=== PATIENT | female | born 1945 | race Caucasian/White ===

== ENCOUNTER 2018-03-05 11:40 | Inpatient (IN) | payer OTHER, MEDICAID ==
[2018-03-05 12:30] LABS: ABNORMAL IP MESSAGE 1; HEMATOCRIT 28.6 % (37.0-47.0); HEMOGLOBIN 9.5 g/dl (12.0-16.0); MEAN CORPUSCULAR HEMOGLOBIN 29.2 pg (29.0-33.0); MEAN CORPUSCULAR HGB CONC 33.2 g/dl (32.0-37.0); PLATELET COUNT 92 10^3/UL (140-415); RED BLOOD COUNT 3.25 10^6/ul (4.20-5.40); RED CELL DISTRIBUTION WIDTH 13.2 % (11.5-14.5)
[2018-03-05 12:30] LABS: WHITE BLOOD COUNT 2.5 10^3/ul (4.8-10.8)
[2018-03-05 12:31] LABS: ADD MAN DIFF? YES; POSITIVE DIFF @See below
[2018-03-05 12:53] LABS: BAND NEUTROPHILS #M 0.1 10^3/ul (0.0-0.6); BAND NEUTROPHILS % (M) 7 % (0-4); GIANT THROMBO% (M) 3 % (0-0); LYMPHOCYTES #M 0.6 10^3/ul (0.8-2.9); LYMPHOCYTES % (M) 27 % (15-51); MONOCYTE #M 0.1 10^3/ul (0.3-0.9); MONOCYTES % (M) 7 % (0-11); PLATELET ESTIMATE DECREASED; SEG NEUT #M 1.5 10^3/ul (1.6-7.5); SEGMENTED NEUTROPHILS (M) % 59 % (39-77); SMUDGE%M 11 % (0-0)
[2018-03-05 12:55] LABS: ANION GAP 18 (8-16); BLOOD UREA NITROGEN 35 mg/dl (7-20); CALCIUM 8.2 mg/dl (8.4-10.2); CARBON DIOXIDE 20 mmol/L (21-31); CHLORIDE 100 mmol/L (97-110); GLUCOSE 226 mg/dl (70-220); POTASSIUM 5.1 mmol/L (3.5-5.1); SODIUM 133 mmol/L (135-144)
[2018-03-05] MEDS: ASPIRIN 81 MG TAB PO (12:56)
[2018-03-05 13:08] LABS: TROPONIN-I < 0.012 ng/ml (0.000-0.120)
[2018-03-05 13:35] LABS: B-TYPE NATRIURETIC PEPTIDE 1800 PG/ML (0-450)
[2018-03-05] MEDS ORDERED: ONDANSETRON 4 MG INJ IV (14:30)
[2018-03-05] MEDS ORDERED: ACETAMINOPHEN 325 MG TAB PO ×2 (14:30→15:30)
[2018-03-05] MEDS ORDERED: NACL 0.9% 3 ML SYG IV (15:30)
[2018-03-05] MEDS ORDERED: morphine 2 MG INJ IV (15:30)
[2018-03-05] MEDS ORDERED: ZOLPIDEM 5 MG TAB PO (15:30)
[2018-03-05] MEDS ORDERED: DEXTROSE 50% 50 ML SYRINGE IV ×2 (16:30)
[2018-03-05] MEDS ORDERED: GLUCOSE GEL 15 GRAM TUBE BUCCAL (16:30)
[2018-03-05] MEDS ORDERED: GLUCOSE GEL 15 GRAM TUBE PO ×2 (16:30)
[2018-03-05] MEDS ORDERED: GLUCAGON 1 MG INJ IM (16:30)
[2018-03-05] MEDS: FUROSEMIDE 40 MG INJ IV (17:46)
[2018-03-05] MEDS: INSULIN ASPART [NOVOLOG] 3 ML PEN SC ×2 (17:49→21:00)
[2018-03-05 19:39] LABS: HAAIG REFLEX REFLEX FILED
[2018-03-05 19:42] LABS: RETICULOCYTE COUNT # 0.071 X10^6 (0.020-0.110); RETICULOCYTE COUNT % 2.1 % (0.5-1.5)
[2018-03-05 19:42] LABS: RETICULOCYTE RBC 3.45
[2018-03-05 19:58] LABS: LACTATE DEHYDROGENASE 489 IU/L (313-618)
[2018-03-05 19:58] LABS: CREATINE KINASE 75 IU/L (23-200)
[2018-03-05 20:12] LABS: CK INDEX 0.9; CK-MB 0.67 ng/ml (0.0-2.4)
[2018-03-05 20:13] LABS: TROPONIN-I < 0.012 ng/ml (0.000-0.120)
[2018-03-05 20:32] LABS: HEPATITIS B SURFACE ANTIGEN NEGATIVE (NEGATIVE)
[2018-03-05 20:50] LABS: HEPATITIS B CORE ANTIBODY NEGATIVE (NEGATIVE); HEPATITIS C VIRAL ANTIBODY NEGATIVE (NEGATIVE)
[2018-03-05 21:00] LABS: HIV 1&2 ANTIBODY NEGATIVE (NEGATIVE)
[2018-03-05] MEDS ORDERED: PREGABALIN 75 MG CAP PO (21:00)
[2018-03-05] MEDS: PRAMIPEXOLE 0.125 MG TAB PO (21:04)
[2018-03-05] MEDS: FAMOTIDINE 20 MG TAB PO (21:04)
[2018-03-05] MEDS: ATORVASTATIN 20 MG TAB PO (21:04)
[2018-03-05] MEDS: INSULIN GLARGINE [LANtus] 3 ML PEN SC (21:13)
[2018-03-05] MEDS: HEPARIN 5,000 UNIT/0.5 ML VIAL SC (21:14)
[2018-03-05 21:17] LABS: FOLATE > 20.0 ng/ml (2.8-20.0)
[2018-03-05] MEDS: PREGABALIN 50 MG CAP PO (22:04)
[2018-03-06 00:11] LABS: ADD UMIC NO; UR ASCORBIC ACID NEGATIVE (NEGATIVE); UR BILIRUBIN (Dip) NEGATIVE (NEGATIVE); UR BLOOD (Dip) NEGATIVE (NEGATIVE); UR CLARITY CLEAR (CLEAR); UR COLOR COLORLESS (YELLOW); UR GLUCOSE (Dip) NEGATIVE (NEGATIVE); UR KETONES (Dip) NEGATIVE (NEGATIVE); UR LEUKOCYTE ESTERASE (Dip) NEGATIVE Leu/ul (NEGATIVE); UR NITRITE (Dip) NEGATIVE (NEGATIVE); UR SPECIFIC GRAVITY (Dip) 1.004 (1.003-1.030); UR TOTAL PROTEIN (Dip) NEGATIVE (NEGATIVE); UR UROBILINOGEN (Dip) NEGATIVE (NEGATIVE)
[2018-03-06 00:39] LABS: CREATINE KINASE 93 IU/L (23-200)
[2018-03-06 00:49] LABS: CK INDEX 1.1; CK-MB 0.99 ng/ml (0.0-2.4)
[2018-03-06] MEDS: ACCU-CHEK XX ×2 (01:28→22:29)
[2018-03-06 02:00] LABS: TROPONIN-I < 0.012 ng/ml (0.000-0.120)
[2018-03-06 06:59] LABS: ADD MAN DIFF? NO
[2018-03-06 07:14] LABS: EOSINOPHILS % 0.4 % (0.0-7.0); HEMATOCRIT 30.5 % (37.0-47.0); HEMOGLOBIN 10.4 g/dl (12.0-16.0); LYMPHOCYTES # 0.9 10^3/ul (0.8-2.9); LYMPHOCYTES % 33.7 % (15.0-51.0); MEAN CORPUSCULAR HEMOGLOBIN 29.7 pg (29.0-33.0); MEAN CORPUSCULAR HGB CONC 34.1 g/dl (32.0-37.0); MEAN CORPUSCULAR VOLUME 87.1 fl (82.0-101.0); MEAN PLATELET VOLUME 11.4 fl (7.4-10.4); MONOCYTE # 0.4 10^3/ul (0.3-0.9); MONOCYTES % 15.5 % (0.0-11.0); NEUTROPHIL # 1.3 10^3/ul (1.6-7.5); NEUTROPHILS % 47.4 % (39.0-77.0); PLATELET COUNT 101 10^3/UL (140-415)
[2018-03-06 07:14] LABS: WHITE BLOOD COUNT 2.6 10^3/ul (4.8-10.8)
[2018-03-06 07:21] LABS: ALANINE AMINOTRANSFERASE 30 IU/L (13-69); ALBUMIN 4.4 g/dl (3.3-4.9); ALBUMIN/GLOBULIN RATIO 1.41; ALKALINE PHOSPHATASE 84 IU/L (42-121); ANION GAP 17 (8-16); ASPARTATE AMINO TRANSFERASE 27 IU/L (15-46); BILIRUBIN,INDIRECT 0.4 mg/dl (0-1.1); BILIRUBIN,TOTAL 0.4 mg/dl (0.2-1.3); BLOOD UREA NITROGEN 33 mg/dl (7-20); CALCIUM 9.5 mg/dl (8.4-10.2); CARBON DIOXIDE 29 mmol/L (21-31); CHLORIDE 98 mmol/L (97-110); CHOL/HDL RATIO 2.5 RATIO; CHOLESTEROL 97 mg/dl (100-200); CREATININE 1.05 mg/dl (0.44-1.00); GLUCOSE 104 mg/dl (70-220); HDL CHOLESTEROL 38 mg/dl (33-92); LDL CHOLESTEROL,CALCULATED 21 mg/dl; MAGNESIUM 1.7 mg/dl (1.7-2.5); PHOSPHORUS 5.4 mg/dl (2.5-4.9); POTASSIUM 4.4 mmol/L (3.5-5.1); SODIUM 140 mmol/L (135-144); TOTAL PROTEIN 7.5 g/dl (6.1-8.1); TRIGLYCERIDES 188 mg/dl (0-149)
[2018-03-06] MEDS: INSULIN ASPART [NOVOLOG] 3 ML PEN SC ×4 (08:00→20:49)
[2018-03-06] MEDS ORDERED: ENOXAPARIN 40 MG/0.4 ML SYG SC (09:00)
[2018-03-06] MEDS: SOD CHLORIDE 0.9% 100 ML (09:07)
[2018-03-06] MEDS: IODIXANOL LOCM 100 ML BTL (09:07)
[2018-03-06] MEDS: FERROUS SULFATE (EC) 325 MG TAB PO (09:38)
[2018-03-06] MEDS: ASPIRIN 81 MG TAB PO (09:38)
[2018-03-06] MEDS: SERTRALINE 100 MG TAB PO (09:38)
[2018-03-06] MEDS: DOCUSATE SODIUM 250 MG CAP PO (09:39)
[2018-03-06] MEDS: PREGABALIN 50 MG CAP PO ×2 (09:39→20:45)
[2018-03-06] MEDS: FOLIC ACID 1 MG TAB PO (09:39)
[2018-03-06] MEDS: FAMOTIDINE 20 MG TAB PO ×2 (09:40→20:45)
[2018-03-06] MEDS: HEPARIN 5,000 UNIT/0.5 ML VIAL SC ×2 (09:41→21:03)
[2018-03-06] MEDS: FUROSEMIDE 40 MG INJ IV ×2 (09:44→17:52)
[2018-03-06 13:38] LABS: HEMOGLOBIN A1C 6.8 % (0-5.9)
[2018-03-06] MEDS: POLYETHYLENE GLYCOL 17 GM PACKET PO (16:22)
[2018-03-06] MEDS: ALPRAZOLAM 0.25 MG TAB PO (16:25)
[2018-03-06 17:16] LABS: INR 1.14; PROTIME 14.8 Sec (11.9-14.9); PT RATIO 1.2
[2018-03-06 17:17] LABS: PARTIAL THROMBOPLASTIN TIME 37.1 Sec (25.0-35.0)
[2018-03-06] MEDS: DOCUSATE SODIUM 100 MG CAP PO (20:45)
[2018-03-06] MEDS: PRAMIPEXOLE 0.125 MG TAB PO (20:45)
[2018-03-06] MEDS: INSULIN GLARGINE [LANtus] 3 ML PEN SC (21:03)
[2018-03-06] MEDS: ATORVASTATIN 20 MG TAB PO (21:04)
[2018-03-07] MEDS: FUROSEMIDE 40 MG INJ IV ×2 (06:53→18:26)
[2018-03-07] MEDS: INSULIN ASPART [NOVOLOG] 3 ML PEN SC ×4 (08:45→21:00)
[2018-03-07] MEDS: DOCUSATE SODIUM 100 MG CAP PO ×2 (08:46→21:24)
[2018-03-07] MEDS: FERROUS SULFATE (EC) 325 MG TAB PO (08:46)
[2018-03-07] MEDS: FOLIC ACID 1 MG TAB PO (08:47)
[2018-03-07] MEDS: POLYETHYLENE GLYCOL 17 GM PACKET PO (08:47)
[2018-03-07] MEDS: PREGABALIN 50 MG CAP PO ×2 (08:47→21:27)
[2018-03-07] MEDS: FAMOTIDINE 20 MG TAB PO ×2 (08:47→21:26)
[2018-03-07] MEDS: SERTRALINE 100 MG TAB PO (08:47)
[2018-03-07] MEDS: HEPARIN 5,000 UNIT/0.5 ML VIAL SC ×2 (08:47→21:29)
[2018-03-07 09:20] LABS: ADD MAN DIFF? NO
[2018-03-07 09:32] LABS: WHITE BLOOD COUNT 2.8 10^3/ul (4.8-10.8)
[2018-03-07 09:32] LABS: EOSINOPHILS % 0.4 % (0.0-7.0); HEMOGLOBIN 11.4 g/dl (12.0-16.0); LYMPHOCYTES # 0.9 10^3/ul (0.8-2.9); MEAN CORPUSCULAR HGB CONC 33.5 g/dl (32.0-37.0); MEAN CORPUSCULAR VOLUME 86.5 fl (82.0-101.0); MEAN PLATELET VOLUME 11.4 fl (7.4-10.4); MONOCYTE # 0.4 10^3/ul (0.3-0.9); MONOCYTES % 14.5 % (0.0-11.0); NEUTROPHIL # 1.4 10^3/ul (1.6-7.5); NEUTROPHILS % 48.8 % (39.0-77.0); PLATELET COUNT 111 10^3/UL (140-415); RED BLOOD COUNT 3.93 10^6/ul (4.20-5.40); RED CELL DISTRIBUTION WIDTH 13.2 % (11.5-14.5)
[2018-03-07] MEDS: PROPOFOL 20 ML (09:50)
[2018-03-07] MEDS: MIDAZOLAM 1 MG/ML 2 ML INJ (09:50)
[2018-03-07] MEDS: FENTAnyl 50 MCG/ML VIAL (09:50)
[2018-03-07 09:53] LABS: ALBUMIN 4.8 g/dl (3.3-4.9); ANION GAP 21 (8-16); BLOOD UREA NITROGEN 37 mg/dl (7-20); CALCIUM 9.8 mg/dl (8.4-10.2); CARBON DIOXIDE 30 mmol/L (21-31); CHLORIDE 93 mmol/L (97-110); CREATININE 1.18 mg/dl (0.44-1.00); GLUCOSE 156 mg/dl (70-220); MAGNESIUM 1.4 mg/dl (1.7-2.5); PHOSPHORUS 5.5 mg/dl (2.5-4.9); SODIUM 140 mmol/L (135-144)
[2018-03-07] MEDS: EPHEDrine SULFATE 50 MG/5 ML SYG (10:00)
[2018-03-07] MEDS: LIDOCAINE 1% (MDV) 10 ML INJ ×2 (10:40)
[2018-03-07] MEDS ORDERED: MEPERIDINE 25 MG INJ IV (11:30)
[2018-03-07] MEDS ORDERED: PROCHLORPERAZINE 10 MG INJ IV (11:30)
[2018-03-07] MEDS ORDERED: DIPHENHYDRAMINE 50 MG INJ IV (11:30)
[2018-03-07] MEDS ORDERED: ONDANSETRON 4 MG INJ IV (11:30)
[2018-03-07] MEDS ORDERED: FENTAnyl 50 MCG/ML VIAL IV (11:30)
[2018-03-07] MEDS ORDERED: HYDROmorphONE 1 MG/5 ML IV SYRINGE IV ×3 (11:30)
[2018-03-07 13:18] LABS: HAAIG REFLEX REFLEX FILED
[2018-03-07 13:58] LABS: HEPATITIS B SURFACE ANTIGEN NEGATIVE (NEGATIVE)
[2018-03-07 14:15] LABS: HEPATITIS B CORE ANTIBODY NEGATIVE (NEGATIVE); HEPATITIS C VIRAL ANTIBODY NEGATIVE (NEGATIVE)
[2018-03-07 14:17] LABS: HIV 1&2 ANTIBODY NEGATIVE (NEGATIVE)
[2018-03-07] MEDS ORDERED: MAGNESIUM SULFATE 3 GM in DEXTROSE 5% 100 ML IVPB (15:00)
[2018-03-07 16:11] LABS: HAPTOGLOBIN 150 mg/dL (43-212)
[2018-03-07] MEDS: MAGNESIUM SULFATE 1 GM/D5W 100 ML IVPB (17:14)
[2018-03-07] MEDS: MAG SULFATE 2GM IN 50 ML IVPB (18:18)
[2018-03-07] MEDS: ARTIFICIAL TEARS 15 ML OPH BOTH EYES (21:23)
[2018-03-07] MEDS: ATORVASTATIN 20 MG TAB PO (21:24)
[2018-03-07] MEDS: PRAMIPEXOLE 0.125 MG TAB PO (21:25)
[2018-03-07] MEDS: INSULIN GLARGINE [LANtus] 3 ML PEN SC (21:30)
[2018-03-07] MEDS: SOD CHLORIDE 0.9% 1,000 ML IV (21:41)
[2018-03-08] MEDS: ACCU-CHEK XX (02:00)
[2018-03-08] MEDS: ONDANSETRON 4 MG INJ IV (03:12)
[2018-03-08] MEDS: SOD CHLORIDE 0.9% 1,000 ML IV (06:00)
[2018-03-08] MEDS ORDERED: FENTAnyl 50 MCG/ML VIAL ×2 (07:00→07:36)
[2018-03-08] MEDS ORDERED: POLYMYXIN/BACITRACIN 1L IRRIG (07:07)
[2018-03-08] MEDS ORDERED: LIDOCAINE 1%/EPI 30 ML INJ (07:16)
[2018-03-08] MEDS ORDERED: SOD CHLORIDE 0.9% 500 ML (07:19)
[2018-03-08] MEDS ORDERED: PROPOFOL 40 ML (07:36)
[2018-03-08] MEDS ORDERED: MIDAZOLAM 1 MG/ML 2 ML INJ (07:36)
[2018-03-08] MEDS ORDERED: CEFAZOLIN 2 GM/50 ML (PMX) 50 ML IVPB (07:43)
[2018-03-08] MEDS: INSULIN ASPART [NOVOLOG] 3 ML PEN SC ×4 (08:00→21:01)
[2018-03-08] MEDS ORDERED: PHENYLephrine (100 MCG/ML) 5ML SYG (08:17)
[2018-03-08] MEDS ORDERED: ONDANSETRON 4 MG INJ (08:47)
[2018-03-08] MEDS: POLYETHYLENE GLYCOL 17 GM PACKET PO ×2 (09:00→11:49)
[2018-03-08] MEDS: FUROSEMIDE 40 MG INJ IV ×2 (09:00→11:46)
[2018-03-08] MEDS: FOLIC ACID 1 MG TAB PO ×2 (09:00→11:47)
[2018-03-08] MEDS: PREGABALIN 50 MG CAP PO ×3 (09:00→20:53)
[2018-03-08] MEDS: SERTRALINE 100 MG TAB PO ×2 (09:00→11:49)
[2018-03-08] MEDS: FERROUS SULFATE (EC) 325 MG TAB PO ×2 (09:00→11:47)
[2018-03-08] MEDS: DOCUSATE SODIUM 100 MG CAP PO ×3 (09:00→20:53)
[2018-03-08] MEDS: FAMOTIDINE 20 MG TAB PO ×3 (09:00→20:54)
[2018-03-08] MEDS: HEPARIN 5,000 UNIT/0.5 ML VIAL SC ×3 (09:00→20:58)
[2018-03-08] MEDS ORDERED: morphine 2 MG INJ IV (10:00)
[2018-03-08 12:01] LABS: ADD MAN DIFF? NO
[2018-03-08 12:45] LABS: ALBUMIN 4.1 g/dl (3.3-4.9); ANION GAP 15 (8-16); BLOOD UREA NITROGEN 34 mg/dl (7-20); CALCIUM 8.8 mg/dl (8.4-10.2); CARBON DIOXIDE 28 mmol/L (21-31); CHLORIDE 101 mmol/L (97-110); CREATININE 1.01 mg/dl (0.44-1.00); GLUCOSE 164 mg/dl (70-220); PHOSPHORUS 4.5 mg/dl (2.5-4.9); POTASSIUM 4.2 mmol/L (3.5-5.1); SODIUM 140 mmol/L (135-144)
[2018-03-08 14:11] LABS: BASOPHILS % 0.3 % (0.0-2.0); HEMATOCRIT 34.5 % (37.0-47.0); HEMOGLOBIN 11.3 g/dl (12.0-16.0); LYMPHOCYTES # 0.7 10^3/ul (0.8-2.9); LYMPHOCYTES % 25.4 % (15.0-51.0); MEAN CORPUSCULAR HEMOGLOBIN 28.9 pg (29.0-33.0); MEAN CORPUSCULAR HGB CONC 32.8 g/dl (32.0-37.0); MEAN CORPUSCULAR VOLUME 88.2 fl (82.0-101.0); MONOCYTE # 0.4 10^3/ul (0.3-0.9); MONOCYTES % 13.2 % (0.0-11.0); NEUTROPHIL # 1.7 10^3/ul (1.6-7.5); NEUTROPHILS % 59.4 % (39.0-77.0); PLATELET COUNT 111 10^3/UL (140-415); RED BLOOD COUNT 3.91 10^6/ul (4.20-5.40); RED CELL DISTRIBUTION WIDTH 13.1 % (11.5-14.5)
[2018-03-08 14:11] LABS: WHITE BLOOD COUNT 2.9 10^3/ul (4.8-10.8)
[2018-03-08] MEDS: morphine LIQ (10 MG/5 ML) CUP PO ×2 (16:28→22:33)
[2018-03-08] MEDS: ARTIFICIAL TEARS 15 ML OPH BOTH EYES (20:53)
[2018-03-08] MEDS: ATORVASTATIN 20 MG TAB PO (20:54)
[2018-03-08] MEDS: PRAMIPEXOLE 0.125 MG TAB PO (20:55)
[2018-03-08] MEDS: CEFAZOLIN 2 GM/50 ML (PMX) 50 ML IVPB (20:56)
[2018-03-08] MEDS: INSULIN GLARGINE [LANtus] 3 ML PEN SC (21:04)
[2018-03-09] MEDS: ACCU-CHEK XX (02:58)
[2018-03-09] MEDS: morphine LIQ (10 MG/5 ML) CUP PO ×2 (06:33→15:15)
[2018-03-09 08:37] LABS: ADD MAN DIFF? NO
[2018-03-09 08:43] LABS: ABNORMAL IP MESSAGE 1; BASOPHILS % 0.3 % (0.0-2.0); EOSINOPHILS % 0.3 % (0.0-7.0); HEMATOCRIT 33.3 % (37.0-47.0); LYMPHOCYTES # 0.9 10^3/ul (0.8-2.9); LYMPHOCYTES % 25.6 % (15.0-51.0); MEAN CORPUSCULAR HEMOGLOBIN 29.2 pg (29.0-33.0); MEAN CORPUSCULAR VOLUME 88.3 fl (82.0-101.0); MEAN PLATELET VOLUME 11.2 fl (7.4-10.4); MONOCYTE # 0.5 10^3/ul (0.3-0.9); MONOCYTES % 14.8 % (0.0-11.0); NEUTROPHIL # 1.9 10^3/ul (1.6-7.5); NEUTROPHILS % 57.5 % (39.0-77.0); PLATELET COUNT 99 10^3/UL (140-415); RED BLOOD COUNT 3.77 10^6/ul (4.20-5.40); RED CELL DISTRIBUTION WIDTH 13.1 % (11.5-14.5)
[2018-03-09 08:43] LABS: WHITE BLOOD COUNT 3.3 10^3/ul (4.8-10.8)
[2018-03-09] MEDS: FAMOTIDINE 20 MG TAB PO (08:52)
[2018-03-09] MEDS: DOCUSATE SODIUM 100 MG CAP PO (08:52)
[2018-03-09] MEDS: FERROUS SULFATE (EC) 325 MG TAB PO (08:52)
[2018-03-09] MEDS: PREGABALIN 50 MG CAP PO (08:52)
[2018-03-09] MEDS: SERTRALINE 100 MG TAB PO (08:52)
[2018-03-09] MEDS: FUROSEMIDE 40 MG INJ IV ×2 (08:53→15:15)
[2018-03-09] MEDS: FOLIC ACID 1 MG TAB PO (08:53)
[2018-03-09] MEDS: INSULIN ASPART [NOVOLOG] 3 ML PEN SC ×3 (08:57→17:13)
[2018-03-09] MEDS: HEPARIN 5,000 UNIT/0.5 ML VIAL SC (08:57)
[2018-03-09] MEDS: POLYETHYLENE GLYCOL 17 GM PACKET PO (08:58)
[2018-03-09 08:59] LABS: ALBUMIN 4.4 g/dl (3.3-4.9); ANION GAP 16 (8-16); BLOOD UREA NITROGEN 35 mg/dl (7-20); CALCIUM 8.8 mg/dl (8.4-10.2); CARBON DIOXIDE 31 mmol/L (21-31); CHLORIDE 97 mmol/L (97-110); CREATININE 1.16 mg/dl (0.44-1.00); GLUCOSE 179 mg/dl (70-220); MAGNESIUM 1.9 mg/dl (1.7-2.5); PHOSPHORUS 3.9 mg/dl (2.5-4.9); SODIUM 140 mmol/L (135-144)
[2018-03-09] MEDS: CEFAZOLIN 2 GM/50 ML (PMX) 50 ML IVPB (09:08)
[2018-03-09 09:39] LABS: ALANINE AMINOTRANSFERASE 33 IU/L (13-69); ALBUMIN 4.2 g/dl (3.3-4.9); ALKALINE PHOSPHATASE 102 IU/L (42-121); ANION GAP 16 (8-16); ASPARTATE AMINO TRANSFERASE 32 IU/L (15-46); BILIRUBIN,INDIRECT 0.5 mg/dl (0-1.1); BILIRUBIN,TOTAL 0.5 mg/dl (0.2-1.3); BLOOD UREA NITROGEN 36 mg/dl (7-20); CALCIUM 8.7 mg/dl (8.4-10.2); CARBON DIOXIDE 30 mmol/L (21-31); CHLORIDE 98 mmol/L (97-110); CREATININE 1.09 mg/dl (0.44-1.00); GLUCOSE 177 mg/dl (70-220); SODIUM 140 mmol/L (135-144); TOTAL PROTEIN 7.7 g/dl (6.1-8.1)
[2018-03-10] MEDS ORDERED: FUROSEMIDE 40 MG TAB PO (09:00)
== END 2018-03-09 17:52 | disposition home health service (06) | DRG 242 ==
LOC: E/R 11:40 → MS4 14:04
PROC: 0JH606Z Insertion of Pacemaker, Dual Chamber into Chest Subcutaneous Tissue and Fascia, Open Approach (ICD-10-PCS; principal; 2018-03-08 07:30)
PROC: 02H63JZ Insertion of Pacemaker Lead into Right Atrium, Percutaneous Approach (ICD-10-PCS; 2018-03-08 07:30)
PROC: 02HK3JZ Insertion of Pacemaker Lead into Right Ventricle, Percutaneous Approach (ICD-10-PCS; 2018-03-08 07:30)
PROC: 4B02XSZ Measurement of Cardiac Pacemaker, External Approach (ICD-10-PCS; 2018-03-08 07:34)
DX: I13.0 Hypertensive heart and chronic kidney disease with heart failure and stage 1 through stage 4 chronic kidney disease, or unspecified chronic kidney disease (principal); I50.33 Acute on chronic diastolic (congestive) heart failure; E87.1 Hypo-osmolality and hyponatremia; N17.9 Acute kidney failure, unspecified; D61.818 Other pancytopenia; Z68.43 Body mass index [BMI] 50.0-59.9, adult; E11.22 Type 2 diabetes mellitus with diabetic chronic kidney disease; E11.65 Type 2 diabetes mellitus with hyperglycemia; I49.5 Sick sinus syndrome; E05.90 Thyrotoxicosis, unspecified without thyrotoxic crisis or storm; E66.01 Morbid (severe) obesity due to excess calories; K76.0 Fatty (change of) liver, not elsewhere classified; E78.5 Hyperlipidemia, unspecified; R07.9 Chest pain, unspecified; F41.9 Anxiety disorder, unspecified; F32.9 Major depressive disorder, single episode, unspecified; K21.9 Gastro-esophageal reflux disease without esophagitis; K59.00 Constipation, unspecified; I25.10 Atherosclerotic heart disease of native coronary artery without angina pectoris; N18.9 Chronic kidney disease, unspecified; D50.9 Iron deficiency anemia, unspecified; Z79.4 Long term (current) use of insulin; Z79.82 Long term (current) use of aspirin
CPT/HCPCS: 33208; 36415; 71045; 74177; 76700; 77012; 80048; 80053; 80061; 80069; 81003; 82550; 82553; 82607; 82746; 82962; 83010; 83036; 83615; 83735; 83880; 84100; 84443; 84484; 85025; 85045; 85610; 85730; 86703; 86704; 86709; 86803; 87040; 87340; 88184; 88185; 88237; 88305; 88311; 88313; 88341; 88342; 88374; 93005; 93306; 97162; 99285-25

== ENCOUNTER 2018-03-28 12:56 | Observation (INO) | payer OTHER ==
[2018-03-28 14:01] LABS: ABNORMAL IP MESSAGE 1; HEMATOCRIT 30.3 % (37.0-47.0); HEMOGLOBIN 10.5 g/dl (12.0-16.0); MEAN CORPUSCULAR HGB CONC 34.7 g/dl (32.0-37.0); MEAN CORPUSCULAR VOLUME 86.6 fl (82.0-101.0); MEAN PLATELET VOLUME 10.9 fl (7.4-10.4); PLATELET COUNT 91 10^3/UL (140-415); RED CELL DISTRIBUTION WIDTH 13.2 % (11.5-14.5)
[2018-03-28 14:01] LABS: WHITE BLOOD COUNT 2.2 10^3/ul (4.8-10.8)
[2018-03-28 14:02] LABS: ADD MAN DIFF? YES; POSITIVE DIFF @See below
[2018-03-28 14:18] LABS: ANION GAP 13 (8-16); BLOOD UREA NITROGEN 17 mg/dl (7-20); CALCIUM 8.9 mg/dl (8.4-10.2); CARBON DIOXIDE 27 mmol/L (21-31); CHLORIDE 98 mmol/L (97-110); CREATININE 0.75 mg/dl (0.44-1.00); GLUCOSE 155 mg/dl (70-220); SODIUM 134 mmol/L (135-144)
[2018-03-28 14:30] LABS: TROPONIN-I < 0.010 ng/ml (0.000-0.120)
[2018-03-28] MEDS: morphine 4 MG/ML VIAL IV (14:35)
[2018-03-28 14:43] LABS: ANISOCYTOSIS 1+ (0-0); BAND NEUTROPHILS #M 0.1 10^3/ul (0.0-0.6); BAND NEUTROPHILS % (M) 6 % (0-4); GIANT THROMBO% (M) 2 % (0-0); LYMPHOCYTES #M 0.5 10^3/ul (0.8-2.9); LYMPHOCYTES % (M) 26 % (15-51); MONOCYTE #M 0.1 10^3/ul (0.3-0.9); MONOCYTES % (M) 7 % (0-11); MYELOCYTES % (M) 1 % (0-0); OVALOCYTES 1+ (0-0); PLATELET ESTIMATE DECREASED; POLYCHROMASIA 1+ (0-0); SEG NEUT #M 1.3 10^3/ul (1.6-7.5); SEGMENTED NEUTROPHILS (M) % 60 % (39-77); SMUDGE%M 29 % (0-0)
[2018-03-28 14:49] LABS: D-DIMER 931.39 ng/ml (<460)
[2018-03-28] MEDS ORDERED: ACETAMINOPHEN 325 MG TAB PO (15:00)
[2018-03-28] MEDS ORDERED: ONDANSETRON 4 MG INJ IV ×2 (15:00→15:30)
[2018-03-28] MEDS ORDERED: morphine 2 MG INJ IV (15:30)
[2018-03-28] MEDS ORDERED: NACL 0.9% 3 ML SYG IV (15:30)
[2018-03-28] MEDS ORDERED: DOCUSATE SODIUM 100 MG CAP PO (15:30)
[2018-03-28] MEDS ORDERED: ALPRAZOLAM 0.25 MG TAB PO (15:30)
[2018-03-28] MEDS ORDERED: ACETAMINOPHEN 650 MG SUPP PR (15:30)
[2018-03-28] MEDS ORDERED: ZOLPIDEM 5 MG TAB PO (15:30)
[2018-03-28] MEDS ORDERED: GLUCOSE GEL 15 GRAM TUBE PO ×2 (16:00)
[2018-03-28] MEDS ORDERED: GLUCOSE GEL 15 GRAM TUBE BUCCAL (16:00)
[2018-03-28] MEDS ORDERED: GLUCAGON 1 MG INJ IM (16:00)
[2018-03-28] MEDS ORDERED: DEXTROSE 50% 50 ML SYRINGE IV ×2 (16:00)
[2018-03-28 16:05] LABS: CREATINE KINASE 61 IU/L (23-200)
[2018-03-28 16:15] LABS: CK-MB 0.31 ng/ml (0.0-2.4)
[2018-03-28 16:17] LABS: HEMOGLOBIN A1C 6.6 % (0-5.9)
[2018-03-28] MEDS: INSULIN ASPART [NOVOLOG] 3 ML PEN SC ×2 (17:45→20:56)
[2018-03-28] MEDS: PANTOPRAZOLE (EC) 40 MG TAB PO (17:46)
[2018-03-28 20:11] LABS: CREATINE KINASE 62 IU/L (23-200)
[2018-03-28 20:24] LABS: CK INDEX 0.6; CK-MB 0.38 ng/ml (0.0-2.4); TROPONIN-I < 0.010 ng/ml (0.000-0.120)
[2018-03-28] MEDS: ATORVASTATIN 20 MG TAB PO (20:43)
[2018-03-28] MEDS: INSULIN GLARGINE [LANTus] (100 UNITS/ML) SYG SC (20:53)
[2018-03-28] MEDS: PRAMIPEXOLE 0.125 MG TAB PO (20:56)
[2018-03-28] MEDS: PREGABALIN 75 MG CAP PO (20:56)
[2018-03-29] MEDS: ACCU-CHEK XX (02:00)
[2018-03-29 03:13] LABS: CREATINE KINASE 58 IU/L (23-200)
[2018-03-29 03:25] LABS: CK INDEX 0.8; CK-MB 0.48 ng/ml (0.0-2.4); TROPONIN-I < 0.010 ng/ml (0.000-0.120)
[2018-03-29] MEDS: PANTOPRAZOLE (EC) 40 MG TAB PO (05:50)
[2018-03-29 06:23] LABS: ADD MAN DIFF? NO
[2018-03-29 06:34] LABS: ABNORMAL IP MESSAGE 1; EOSINOPHILS % 0.8 % (0.0-7.0); HEMATOCRIT 31.4 % (37.0-47.0); HEMOGLOBIN 10.5 g/dl (12.0-16.0); LYMPHOCYTES # 0.9 10^3/ul (0.8-2.9); LYMPHOCYTES % 36.7 % (15.0-51.0); MEAN CORPUSCULAR HEMOGLOBIN 29.4 pg (29.0-33.0); MEAN CORPUSCULAR HGB CONC 33.4 g/dl (32.0-37.0); MEAN PLATELET VOLUME 11.1 fl (7.4-10.4); MONOCYTE # 0.5 10^3/ul (0.3-0.9); MONOCYTES % 21.1 % (0.0-11.0); NEUTROPHILS % 40.1 % (39.0-77.0); PLATELET COUNT 89 10^3/UL (140-415); RED BLOOD COUNT 3.57 10^6/ul (4.20-5.40); RED CELL DISTRIBUTION WIDTH 13.4 % (11.5-14.5)
[2018-03-29 06:34] LABS: WHITE BLOOD COUNT 2.4 10^3/ul (4.8-10.8)
[2018-03-29 06:35] LABS: POSITIVE DIFF @See below
[2018-03-29 06:55] LABS: HEMOGLOBIN A1C 6.6 % (0-5.9)
[2018-03-29 06:57] LABS: ALANINE AMINOTRANSFERASE 29 IU/L (13-69); ALBUMIN 4.2 g/dl (3.3-4.9); ALKALINE PHOSPHATASE 71 IU/L (42-121); ANION GAP 13 (8-16); ASPARTATE AMINO TRANSFERASE 34 IU/L (15-46); BILIRUBIN,INDIRECT 0.3 mg/dl (0-1.1); BILIRUBIN,TOTAL 0.3 mg/dl (0.2-1.3); BLOOD UREA NITROGEN 16 mg/dl (7-20); CALCIUM 9.1 mg/dl (8.4-10.2); CARBON DIOXIDE 31 mmol/L (21-31); CHLORIDE 100 mmol/L (97-110); CHOL/HDL RATIO 2.5 RATIO; CHOLESTEROL 98 mg/dl (100-200); CREATININE 0.77 mg/dl (0.44-1.00); GLUCOSE 107 mg/dl (70-220); HDL CHOLESTEROL 39 mg/dl (33-92); LDL CHOLESTEROL,CALCULATED 30 mg/dl; MAGNESIUM 1.9 mg/dl (1.7-2.5); PHOSPHORUS 4.2 mg/dl (2.5-4.9); POTASSIUM 4.9 mmol/L (3.5-5.1); SODIUM 139 mmol/L (135-144); TOTAL PROTEIN 7.2 g/dl (6.1-8.1); TRIGLYCERIDES 146 mg/dl (0-149)
[2018-03-29 07:11] LABS: FREE THYROXINE INDEX (Calc) 2.34 ug/ml (0.65-3.89); T3 UPTAKE 32.9 % (23.5-40.5); T4 (THYROXINE) 7.1 ug/dl (5.5-11.0)
[2018-03-29] MEDS: INSULIN ASPART [NOVOLOG] 3 ML PEN SC ×2 (07:55→11:55)
[2018-03-29] MEDS: PREGABALIN 75 MG CAP PO (08:06)
[2018-03-29] MEDS: ACETAMINOPHEN 325 MG TAB PO (08:06)
[2018-03-29] MEDS: DOCUSATE SODIUM 250 MG CAP PO (08:06)
[2018-03-29] MEDS: FOLIC ACID 1 MG TAB PO (08:07)
[2018-03-29] MEDS: LOSARTAN 50 MG TAB PO (08:07)
[2018-03-29] MEDS: FERROUS SULFATE (EC) 325 MG TAB PO (08:07)
[2018-03-29] MEDS: SERTRALINE 100 MG TAB PO (08:08)
[2018-03-29] MEDS: FUROSEMIDE 40 MG TAB PO (08:08)
[2018-03-29] MEDS: ASPIRIN 81 MG TAB PO (08:08)
[2018-03-29] MEDS: POTASSIUM CHLORIDE (SR) 10 MEQ TAB PO (08:08)
[2018-03-29] MEDS: HYDROCODONE/APAP (5/325) TAB PO (10:32)
== END 2018-03-29 13:30 | disposition home or self-care (01) ==
LOC: E/R 12:56 → TEL 14:47
DX: R07.89 Other chest pain (principal); F41.9 Anxiety disorder, unspecified; F43.9 Reaction to severe stress, unspecified; I13.0 Hypertensive heart and chronic kidney disease with heart failure and stage 1 through stage 4 chronic kidney disease, or unspecified chronic kidney disease; I50.30 Unspecified diastolic (congestive) heart failure; E11.22 Type 2 diabetes mellitus with diabetic chronic kidney disease; N18.9 Chronic kidney disease, unspecified; Z95.0 Presence of cardiac pacemaker; Z79.84 Long term (current) use of oral hypoglycemic drugs; Z88.2 Allergy status to sulfonamides; E66.01 Morbid (severe) obesity due to excess calories; Z68.42 Body mass index [BMI] 45.0-49.9, adult
CPT/HCPCS: 71045; 80048; 80053; 80061; 82550; 82553; 82962; 83036; 83735; 84100; 84436; 84443; 84479; 84484; 85025; 85378; 93005; 96374; 99285-25; G0378